=== PATIENT | female | born 1970 | race Two or more races ===

== ENCOUNTER 2016-05-23 12:35 | Emergency (ER) | payer OTHER ==
[~2016-05-23] VITALS: Ht 170.2 cm; Wt 113.4 kg
[2016-05-23 14:34] VITALS: BP 150/118
[2016-05-23] MEDS ORDERED: HYDROcodone-ACET 10/325MG TAB PO ONE (15:00)
== END 2016-05-23 15:07 | disposition home or self-care (01) ==
LOC: ER 12:43
DX: J20.9 Acute bronchitis, unspecified (principal); J02.9 Acute pharyngitis, unspecified; J45.909 Unspecified asthma, uncomplicated; E11.9 Type 2 diabetes mellitus without complications; I10 Essential (primary) hypertension
CPT/HCPCS: 93005